=== PATIENT | female | born 1980 | race Caucasian/White ===

== ENCOUNTER 2021-08-20 12:55 | Emergency (ER) | payer BC ==
--- OUTSIDE RECORDS SUMMARY | 2021-08-20 13:01 | XMS REPORT | Continuity of Care Document ---
:1980 Author Organization [facility] t Address [address] [place] [address] Care Team Providers Name Role Phone Pcp, Does Not Have A Primary Care Physician Nehal Attending Clinician Unavailable JOANNA Attending Clinician Unavailable Agustin RN, D Attending Clinician Unavailable Pcp, Does Not Have A Attending Clinician EBHIM Attending Clinician Unavailable Doctor Unassigned, Name Attending Clinician Unavailable Robby Attending Clinician Unavailable Sugar Rahman Admitting Clinician Unavailable JOANNA Admitting Clinician Unavailable LESTER [place] Admitting Clinician Unavailable Sadi Mae Admitting Clinician Unavailable Robby Admitting Clinician Unavailable Payers Payer Name Policy Type Policy Number Effective Date Expiration Date S ource Problems Condition Condition Condition Status Onset Resolution Last Treating Co mments Source Name Details Category Date Date Treatment Clinician Date No known No known Disease Unive rs active active ity of problems problems [facility] Allergies, Adverse Reactions, Alerts Allergy Allergy Status Severity Reaction(s) Onset Inactive Treating Comm ents Source Name Type Date Date Clinician Cephalex Propensi Active Palpitations Univers in ty to 01-20 ity of adverse 00:00: [place] reaction 00 Medical s Branch CEPHALEX DRUG Active High Palpitations Un shari IN INGREDI 01-20 ity of 00:00: [place] [id number] Medical Branch Sulfa DA Active SV ANAPHYLAXIS 2020-0 [facility] (Sulfona 12-29 [facility] mide 00:00: Hospita Antibiot 00 l of ics) [place] hydrocod DA Active U 2020-0 [facility] one 12-29 [facility] 00:00: [facility]ospita 00 l of [place] latex DA Active MO 2020-0 [facility] 12-29 [facility] 00:00: [facility]ospita 00 l of [place] hydrocod DA Active U N/V 2020- [facility] one 12-29 [facility] 00:00: [facility]ospita 00 l of [place] latex DA Active MO RED, ITCHY 2019- [facility] SKIN, 12-29 Woman's BLISTERS 00:00: Hospita 00 l of [place] cephalex DA Active SV SEVERE CHEST 2019- HC A in PAIN 12-27 Woman's 00:00: Hospita 00 l of [place] cephalex DA Active SV 2019-0 [facility] in 12-27 Clear 00:00: [place] [facility] Sulfa DA Active U UNKNOWN [facility] (Sulfona 09-20 Clear mide 00:00: [place] Antibiot 00 [facility] hydrocod DA Active U UNKNONN [facility] one 09-20 Clear 00:00: [place] 00 [facility] Sulfa Propensi Active Anaphylaxis Uni vers (Sulfona ty to 2-02 ity of mide adverse 00:00: [place] Antibiot reaction 00 Medica l ics) Branch SULFA Drug Active Anaphylaxis Unive rs (SULFONA Class 2-02 ity of MIDE 00:00: [place] ANTIBIOT 00 Medical ICS) Branch HYDROCOD DA Active U RASH [facility] ONE 11-28 Clear 00:00: [place] [facility] LATEX DA Active U RASH [facility] - Clear 00:00: [place] [facility] No Known DA Active U [facility] Contrast 11-28 Clear Allergie 00:00: [place] s [facility] No Known DA Active U [facility] Food 11-28 Clear Allergie 00:00: [place] s [facility] SULFA DA Active U RASH [facility] DRUGS 11-28 Clear 00:00: [place] [facility] NO KNOWN Drug Active Univers ALLERGIE Class ity of S [facility] Social History Social Habit Start Date Stop Date Quantity Comments Source Exposure to Not sure University SARS-CoV-2 [facility] (event) Branch Tobacco use and 2021-01-20 2021-01-20 Never used Universit y of exposure 00:00:00 00:00:00 [facility] Alcohol intake 2021-01-20 2021-01-20 Lifetime University of 00:00:00 00:00:00 non-drinker [facility] (finding) Branch Sex Ass[birth year] At [birth year] Universit y of 00:00:00 00:00:00 [facility] Smoking Status Start Date Stop Date Source Unknown if ever smoked Universit y of [facility] Never smoker [facility] Medications Ordered Filled Start Stop Current Ordering Indication Dosage Frequency Signature Comments Components Source Medication Medication Date Date Medication? Clinician (SIG) Name Name mesalamine Yes 1.2g Take 1.2 g U nivers 1.2 gram EC 7-10 by mouth 2 it y of tablet 00:00: (two) [place] 00 times Medical daily. Branch mesalamine Yes 1.2g Take 1.2 g U nivers 1.2 gram EC 7-10 by mouth 2 it y of tablet 00:00: (two) [place] 00 times Medical daily. Branch mesalamine Yes 1.2g Take 1.2 g U nivers 1.2 gram EC 7-10 by mouth 2 it y of tablet 00:00: (two) [place] 00 times Medical daily. Branch mesalamine Yes 1.2g Take 1.2 g U nivers 1.2 gram EC 7-10 by mouth 2 it y of tablet 00:00: (two) [place] 00 times Medical daily. Branch mesalamine Yes 1.2g Take 1.2 g U nivers 1.2 gram EC 7-10 by mouth 2 it y of tablet 00:00: (two) [place] 00 times Medical daily. Branch mesalamine Yes 1.2g Take 1.2 g U nivers 1.2 gram EC 7-10 by mouth 2 it y of tablet 00:00: (two) [place] 00 times Medical daily. Branch Procedures Procedure Date / Time Performed Performing Clinician [facility] e ASSIGNMENT OF BENEFITS 2021-01-20 23:20:13 Doctor Unassigned, No [facility] Name Medical Branch Encounters Start End Encounter Admission Attending Care Care Encounter Source Date/Time Date/Time Type Type Clinicians Facility Department ID 2019-12-30 Inpatient TIFFANY Barillas OUTD [id number] [facility] 08:00:00 [facility] 2019-12-28 Inpatient TIFFANY aBrillas OUTD [id number] [facility] 11:30:00 [facility] 2021-08-18 2021-08-18 Outpatient [facility] [id number] [place] 00:00:00 00:00:00 MILAN [address] 2021-08-16 2021-08-16 Outpatient [facility] [id number] [place] 00:00:00 00:00:00 MILAN [address] [facility] 2021-01-22 2021-01-22 Telephone ONEIL [id number] Univers 00:00:00 00:00:00 Elsimary anne SCHULZY [id number] i ty of HOSPITAL 4.2.7.2.686 Aditya as [phone] [facility] [address] [place] 2021-01-21 2021-01-21 Outpatient [facility] [id number] Univers 18:20:00 18:20:[id number] [facility] 2021-01-21 2021-01-21 Telephone [id number] Univers 00:00:00 00:00:00 Patient TASNEEM [id number] it y of Does Not HOSPITAL 4[place]7.2.686 [place] [phone] [facility] [address] 2021-01-20 2021-01-20 Outpatient Anca TAYLOR [facility] [id number] Univers 18:00:00 18:00:[address] [facility] 2021-01-20 2021-01-20 Orders Doctor ONEIL [id number] Univers 00:00:00 00:00:00 Only Unassigned, TASNEEM [id number] ity of [place] [facility] 4.2.7.2.686 Aidtya as [phone] [address] 2021-01-20 2021-01-20 Letter Doctor ONEIL [id number] Univers 00:00:00 00:00:00 (Out) Unassigned, TASNEEM [id number] ity of [place] [facility] 4.2.7.2.686 Aditya as [phone] [facility] 044 Branch 2021-01-20 2021-01-20 Letter Doctor ONEIL [id number] Univers 00:00:00 00:00:00 (Out) Unassigned, TASNEEM [id number] ity of [place] [facility] 4.2.7.2.686 Aditya as [phone] [facility] [address] 2019-12-28 2019-12-28 Outpatient BARTOLO JacoboCL LABO [id number] [facility] 13:49:00 13:49:00 Ashanti [facility] 2019-12-12 2019-12-12 Outpatient BARTOLO JacoboWH OUTD [id number] [facility] 11:00:00 11:00:00 Ashanti [id number] [facility] 2019-11-13 2019-11-13 Outpatient BARTOLO BarillasPM DARRIAN [id number] [facility] 12:00:00 12:00:00 Ashanti [id number] [facility] 2019-10-29 2019-10-29 Outpatient Robby MMG MMG [id number] [place] 10:01:00 10:01:00 0604 [facility] Results Test Description Test Time Test Comments Results Result Comments Source SARS-CoV-2 (COVID-19) RNA [Presence] in Respiratory sp ecimen by 2021-08-16 23:37:47 MOSHE with probe detection Test Item Value Reference Range Interpretation Comme nts SARS-CoV-2 (COVID-19) RNA [Presence] in Respiratory specimen by Not detected MOSHE with probe detection (test code = 89028-2) Whether patient is employed in a healthcare setting (test code = Un known 36848-5) Whether the patient has symptoms related to condition of interest U nknown (test code = 99280-2) Whether the patient was hospitalized for condition of interest Unkn own (test code = 81914-9) Whether the patient was admitted to intensive care unit (ICU) for U nknown condition of interest (test code = 23537-4) Whether patient resides in a congregate care setting (test code = U nknown 32712-0) status (test code = 07277-7) Unknown Date and time of symptom onset (test code = 45819-5) Unknown UTERUS,OTHER THAN PROLAPSE/[id number] 18:42:00 RUN DATE: 01/05/20 [facility] PAGE 1 RUN TIME: 827 Specimen Inquiry RUN USER: INTERFACE PATIENT: ANEUDY BHAT LOC: JHONATHAN U #: [id number] AGE/SX: 39/F [facility] RE[facility]19REG DR: Ashanti Jacobo DO : 78 BED: A DIS: 12/31/19 STATUS: DIS Cristopher TLOC: SPEC #: [id number] RECD: 12/30/19 STATUS: MARYCARMEN JOSEPH #: [id number] MITCH: 12/30/19- SUBM DR: Ashanti Jacobo DO ENTERED: 12/30/19 SP TYPE: UTERUSOTH OTHR DR: Geremias Mae MD ORDERED: LEVEL V SURGICA CODES: [id number] - UTERUS, NOS COPIES TO: Geremias Mae MD [address] [place] [address] Ashanti Jacobo [address] [address] PROCEDURES: LEVEL V SURGICA (Incomplete) TISSUES: UTERUS, NOS -UTERUS/CERVIX/BILATERAL FALLOPIAN TUBES CLINICAL HISTORY 39 year old, adenomyosis, chronic pelvic pain, menometrorrhagia (wpd) FINAL DIAGNOSIS Uterus, cervix, bilateral fallopiantubes, hysterectomy and bilateral salpingectomy: - cervix - mild chronic inflammation, parakeratosis - endometrium - secretory phase - myometrium - no pathologic alterations- uterine serosa - fibrous adhesions - bilateral fallopian tubes - evidence of prior tubal ligation (plastic rings in place bilaterally) - left fallopian tube - focus of endometriosis CPT code(s): 21896 pk/wpd CONTINUED ON NEXT PAGE RUN DATE: 01/05/20 [facility] PAGE 2 RUN TIME: 827 Specimen Inquiry RUN USER: INTERFACE SPEC #: [id number] PATIENT: ANEUDY BHAT #[id number] (Continued) GROSS DESCRIPTION ANATOMIC SOURCE OF TISSUE (per Requisition): Uterus, cervix, bilateral fallopian tubes The specimen is received in formalin, labeled with the patient's name and designated "uterus, cervix, bilateral fallopian tubes". It consists of a 9 x 6 x 4.7 cm, 105 gm hysterectomy specimen and four separate segments of unoriented fallopian tubes containing two fimbriae. The serosa is jesus and contains pink fibrous adhesions in the mid to upper anterior wall. The cervical external os measures 0.8 cm. The portio vaginalis measures 2.7 cm. Carpenter [employer] sections are submitted labeled A1. The endometrium measures 0.1 cm. The myometrium measures up to 2.8 cm thick and contains no discrete lesion. Carpenter [employer] sections are submitted labeled A2 and A3. The first segment of fallopian tube with fimbriae and healed previous tubal ligation measures 5.5 x 0.6 x 0.4 cm and contains pedunculated semi-translucent paratubal cysts. The ligation site contains a 0.3 cm white plastic ring. The entire fimbria and one cross-section of tube with the paratubal cysts are submitted and labeled A4. The remaining three segments of fallopian tube aggregate to 6 x 0.7 x 0.7 cm and contains semi-translucent paratubal cysts measuring up to 0.3 cm. The ligation site contains a 0.3 cm white plastic ring. The entire fimbria and one cross-section from each segment are submitted in A5. hz/kr 12/30/19 MICROSCOPIC DESCRIPTION The cervix has a mild infiltrate of small lymphocytes and plasma cells. Parakeratosis is pr esent. The endometrium is composed of evenly spaced small tubular glands with no significant nuclear stratification or mitotic activity. The myometrium has no pathologic alterations. The uterineserosa has fibrous adhesions. The bilateral fallopian tubes have evidence of prior tubal ligation with plastic rings in place. Paratubal cysts are identified bilaterally. A focus of endometriosis is identified involving the left fallopian tube. pkg/wpd Signed MichelleJenna 12/31/19 1842 END OF REPORT HGB [id number] 05:10:00 Test Item Value Reference Range Interpretation Comments HEMOGLOBIN (test code = HGB) 11.3 g/dL 10.7-13.9 N HEMATOCRIT (test code = HCT) 36.3 % 32.1-42.1 N Novel Coronavirus 11:51:00 Test Item Value Reference Range Interpretation Comments Novel Coronavirus Negative Negative Positive r esults are 2019 Inhouse (test indicativ e of the presence code = [id number]) ofSARS-CoV -2 RNA, clinical correlation wit h patient historyand othe r diagnostic info rmation is necessary to determinepatien t infection status. Positiv e results do not rule out bacterial infection or co -infection with other viru ses. Negative result s do not preclude SARS-C oV-2 infection andsh ould not be used as the [place] e basis for patient managementdecis ions. Negative result s must be combined with otherclinical observations, p atient history, and epidemiological information . Detection of SARS-CoV-2 RNA may be affe cted bysample collec tion methods, storag e conditions, and /or stageof infection. Aleyda l RNA mutations, vacc inations, antiviraltherap eutics, antibiotics, chemotherapeuti c orimmunosuppres bernardino drugs have not been e valuated for effectson d etection. Results are for the identification of SARS-CoV-2 RNA usingthe Skinkers M2000 Sy stem under the FDA Emergen cy UseAuthorizatio n. The testing is perf ormed by personneltraine d in the procedures for the Renee M2000 molecular diagnostic SARS-CoV-2 assa y in vitro. Novel Coronavirus 11:50:00 Test Item Value Reference Range Interpretation Comments Novel Coronavirus Negative Negative Positive r esults are 2019 Inhouse (test indicativ e of the presence code = [id number]) ofSARS-CoV -2 RNA, clinical correlation wit h patient historyand othe r diagnostic info rmation is necessary to determinepatien t infection status. Positiv e results do not rule out bacterial infection or co -infection with other viru ses. Negative result s do not preclude SARS-C oV-2 infection andsh ould not be used as the [place]ip[place] e basis for patient managementdecis ions. Negative result s must be combined with otherclinical observations, p atient history, and epidemiological information . Detection of SARS-CoV-2 RNA may be affe cted bysample collec tion methods, storag e conditions, and /or stageof infection. Aleyda l RNA mutations, vacc inations, antiviraltherap eutics, antibiotics, chemotherapeuti c orimmunosuppres bernardino drugs have not been e valuated for effectson d etection. Results are for the identification of SARS-CoV-2 RNA usingthe Renee M2000 Sy stem under the FDA Emergen cy UseAuthorizatio n. The testing is perf ormed by personneltraine d in the procedures for the Renee M2000 molecular diagnostic SARS-CoV-2 assa y in vitro. AG HEPATITIS B [id number] 17:04:00 Test Item Value Reference Range Interpretation Comments AG HEPATITIS B SURFACE (test code NONREACTIVE NONREACTIVE = HBSAG) IS CONSENT FORM SIGNED FOR HIV TESTING? YAB HEPATITIS C [id number] 17:04:00 Test Item Value Reference Range Interpretation Comments AB HEPATITIS C (test code = NONREACTIVE NONREACTIVE HCVAB) SIGNAL TO CUTOFF (test code = 0.24 <0.80 N CUTOFF) IS CONSENT FORM SIGNED FOR HIV TESTING? YAB HIV 1 17:04:00 Test Item Value Reference Range Interpretation Comments AB HIV 1 2 (test NONREACTIVE NONREACTIVE Done by Rebeka Molina code = [id number]) 4th Gen HIV Ag/Ab Combo Screen IS CONSENT FORM SIGNED FOR HIV TESTING? YURINALYSIS [id number] 14:13:00 Test Item Value Reference Range Interpretation Comments UA COLOR (test code = COLU) YELLOW YELLOW UA APPEARANCE (test code = CLEAR CLEAR APPU) UA GLUCOSE DIPSTICK (test NEGATIVE NEG code = DGLUU) UA BILIRUBIN DIPSTICK (test NEGATIVE NEG code = BILU) UA KETONE DIPSTICK (test code NEGATIVE NEG = KETU) UA SPECIFIC GRAVITY (test 1.015 1.001-1.035 N code = SGU) UA BLOOD DIPSTICK (test code 1+ NEG A = AURELIANO) UA PH DIPSTICK (test code = 6.0 5-9 HA) UA PROTEIN DIPSTICK (test NEGATIVE NEG code = PROU) UA UROBILINIOGEN DIPSTICK NEGATIVE mg/dL NEG (test code = URO) UA NITRITE DIPSTICK (test NEG NEG code = MARIANO) UA LEUKOCYTE ESTERASE NEG NEG DIPSTICK (test code = LEUU) UA WBC (test code = WBCU) 0-2 #/hpf NONE SEEN UA RBC (test code = RBCU) 0-2 #/hpf NONE SEEN UA EPITHELIAL CELLS (test NONE SEEN #/HPF RARE-FEW code = EPIU) UA BACTERIA (test code = NEGATIVE /HPF RARE-FEW BACU) URINE SAMPLE: CLEAN CATCHUR HCG [id number] 14:13:00 Test Item Value Reference Range Interpretation Comments UR HCG QUAL (test NEGATIVE 1. Very di lute urine code = HCGQLU) specimens, as indicated by a lowspecific g ravity, may not contain rep resentative levels ofhCG. 2 . False negative result s may occur when the levels of hCGare below the sensi tivity level of the test. If is still suspec tiana, a first morningurine sp ecimen should be colle cted 48 hours later and tested. URINE SAMPLE: CLEAN CATCHPROTHROMBIN [id number] 14:01:00 Test Item Value Reference Range Interpretation Comments PROTHROMBIN TIME PATIENT (test code 12.0 secs 10.4-12.4 N = PTP) THROMBOPLASTIN TIME [id number] 14:01:00 Test Item Value Reference Range Interpretation Comments THROMBOPLASTIN TIME PARTIAL (test 35.9 secs 22-38 N code = PTT) CHEMISTRY 7 [id number] 13:54:00 Test Item Value Reference Range Interpretation Comments SODIUM (test code = NA) 141 mEq/L 135-145 N POTASSIUM (test code = K) 3.6 mEq/L 3.5-5.0 N CHLORIDE (test code = CL) 103 mEq/L 100-115 N CARBON DIOXIDE (test code = CO2) 29 mEq/L 22-31 N ANION GAP (test code = GAP) 12.20 10-20 N GLUCOSE (test code = GLU) 77 mg/dL 65-110 N BLOOD UREA NITROGEN (test code = 9 mg/dL 7-18 N BUN) GLOMERULAR FILTRATION RATE (test 93 ml/min >60 N code = GFR) CREATININE (test code = CREAT) 0.7 mg/dL 0.5-1.0 N CALCIUM (test code = CA) 8.6 mg/dL 8.4-10.2 N CBC W/AUTO [id number] 13:45:00 Test Item Value Reference Range Interpretation Comments WHITE BLOOD CELL (test code = WBC) 7.5 K/mm3 6.6-12.1 N RED BLOOD CELL (test code = RBC) 4.24 M/mm3 3.45-5.01 N HEMOGLOBIN (test code = HGB) 12.8 g/dL 10.7-13.9 N HEMATOCRIT (test code = HCT) 41.3 % 32.1-42.1 N MEAN CELL VOLUME (test code = MCV) 97 fL 84.1-94.8 H MEAN CELL HGB (test code = MCH) 30.2 pg 27-35 N MEAN CELL HGB CONCETRATION (test 31.0 gm/dL 32.2-34.1 L code = MCHC) RED CELL DISTRIBUTION WIDTH (test 12.2 % 12.4-16.5 L code = RDW) PLATELET COUNT (test code = PLT) 294 K/mm3 133-385 N MEAN PLATELET VOLUME (test code = 10.8 fl 9.1-12.7 N MPV) NEUTROPHIL % (test code = NT%) 64.8 % 56.5-79.4 N LYMPHOCYTE % (test code = LY%) 23.7 % 14.3-34.3 N MONOCYTE % (test code = MO%) 6.8 % 5.1-10.4 N EOSINOPHIL % (test code = EO%) 3.7 % 0.1-3.0 H BASOPHIL % (test code = BA%) 0.7 % 0.1-1.0 N NEUTROPHIL # (test code = NT#) 4.9 K/mm3 LYMPHOCYTE # (test code = LY#) 1.8 K/mm3 MONOCYTE # (test code = MO#) 0.5 K/mm3 EOSINOPHIL # (test code = EO#) 0.28 K/mm3 BASOPHIL # (test code = BA#) 0.1 K/mm3 RBC MORPHOLOGY REQUIRED (test code NORMAL NORMAL = RBCM) PLATELET MORPHOLOGY REQUIRED (test NORMAL NORMAL code = PLTMR) URINALYSIS [id number] 13:42:00 Test Item Value Reference Range Interpretation Comments UA COLOR (test code = COLU) YELLOW YELLOW UA APPEARANCE (test code = CLEAR CLEAR APPU) UA GLUCOSE DIPSTICK (test NEGATIVE NEG code = DGLUU) UA BILIRUBIN DIPSTICK (test NEGATIVE NEG code = BILU) UA KETONE DIPSTICK (test code NEGATIVE NEG = KETU) UA SPECIFIC GRAVITY (test 1.015 1.001-1.035 N code = SGU) UA BLOOD DIPSTICK (test code 1+ NEG A = AURELIANO) UA PH DIPSTICK (test code = 6.0 5-9 HA) UA PROTEIN DIPSTICK (test NEGATIVE NEG code = PROU) UA UROBILINIOGEN DIPSTICK NEGATIVE mg/dL NEG (test code = URO) UA NITRITE DIPSTICK (test NEG NEG code = MARIANO) UA LEUKOCYTE ESTERASE NEG NEG DIPSTICK (test code = LEUU) UA WBC (test code = WBCU) 0-2 #/hpf NONE SEEN UA RBC (test code = RBCU) 0-2 #/hpf NONE SEEN UA EPITHELIAL CELLS (test NONE SEEN #/HPF RARE-FEW code = EPIU) UA BACTERIA (test code = NEGATIVE /HPF RARE-FEW BACU) URINE SAMPLE: CLEAN CATCHUR HCG [id number] 13:42:00 Test Item Value Reference Range Interpretation Comments UR HCG QUAL (test code = HCGQLU) URINE SAMPLE: CLEAN CATCH
--- NOTE | 2021-08-20 13:57 | RAD REPORT ---
EXAM DESCRIPTION: RAD - Chest Single View - 08/20/2021 1:50 pm CLINICAL HISTORY: PALPITATIONS COMPARISON: No comparisons FINDINGS: Lines: None. Lungs: No evidence of edema or pneumonia. Small calcified pulmonary nodules. Pleural: No significant pleural effusions or pneumothorax. Cardiac: The heart size is within normal limits. Bones: No acute fractures. Other: IMPRESSION: No acute cardiopulmonary disease.
[2021-08-20 14:02] LABS: Absolute Lymphocytes (CBC) 1.7 K/uL (0.7-4.9); Hematocrit 33.2 % (36.0-45.0); Lymphocytes % 21.2 % (15.3-44.8); MPV 8.1 fL (7.6-11.3); RBC Red Blood Cell Count 3.69 M/uL (3.86-4.86)
[2021-08-20 14:26] LABS: ALT/SGPT 30 U/L (12-78); AST/SGOT 18 U/L (15-37); Albumin 3.4 g/dL (3.4-5.0); Alkaline Phosphatase 60 U/L (45-117); BUN Blood Urea Nitrogen 9 mg/dL (7-18); Bicarbonate 29 mmol/L (21-32); Bilirubin Direct 0.1 mg/dL (0-0.2); Bilirubin Total 0.3 mg/dL (0.2-1.0); Glucose Level 94 mg/dL (74-106); Magnesium 2.1 mg/dL (1.8-2.4); NT PRO-BNP 179 pg/mL (<125); Potassium 3.3 mmol/L (3.5-5.1); Protein, Total 6.9 g/dL (6.4-8.2); Sodium Level 142 mmol/L (136-145); Troponin High Sensitivity 14.8 pg/mL (<58.9)
--- NOTE | 2021-08-20 15:35 | ER ---
Nurse's Notes [facility] Name: Larisa Jean-Baptiste Age: 41 yrs Sex: Female : 1980 Arrival Date: 08/20/2021 Time: 13:00 Bed 16 Private MD: Diagnosis: Palpitations Presentation: 08/20 13:04 Chief complaint: Patient states: "I had surgery Rajesh morning to fix a stitch from my ab2 hernia repair. Since then I've been SOB, I can feel that my pulse is irregular and I see spots when it happens." Pt c/o chest tightness and tenderness around the incision site. Chief complaint:. Coronavirus screen: Vaccine status: Patient reports being unvaccinated. Client denies travel out of the [place] in the last 14 days. At this time, the client does not indicate any symptoms associated with coronavirus-19. Ebola Screen: Patient negative for fever greater than or equal to 101.5 degrees Fahrenheit, and additional compatible Ebola Virus Disease symptoms Patient denies exposure to infectious person. Patient denies travel to an Ebola-affected area in the 21 days before illness onset. No symptoms or risks identified at this time. Initial Sepsis Screen: Does the patient meet any 2 criteria? No. Patient's initial sepsis screen is negative. Does the patient have a suspected source of infection? No. Patient's initial sepsis screen is negative. Risk Assessment: Do you want to hurt yourself or someone else? Patient reports no desire to harm self or others. Onset of symptoms is unknown. 13:04 Method Of Arrival: Ambulatory ab2 13:04 Acuity: RYLEE 3 ab2 Triage Assessment: 13:09 General: Appears in no apparent distress. uncomfortable, Behavior is calm, cooperative, ab2 appropriate for age. Pain: Denies pain. Cardiovascular: Reports palpitations, shortness of breath. Respiratory: Reports shortness of breath Airway is patent Respiratory effort is even, unlabored, Respiratory pattern is regular, symmetrical. Historical: - Allergies: 13:02 Sulfa (Sulfonamide Antibiotics); ab2 13:02 Keflex; ab2 - Immunization history:: Adult Immunizations up to date, Client reports receiving the 2nd dose of the Covid vaccine. - Social history:: Smoking status: Patient denies any tobacco usage or history of. Screenin:24 Abuse screen: Denies threats or abuse. Denies injuries from another. Nutritional bp screening: No deficits noted. Tuberculosis screening: No symptoms or risk factors identified. Fall Risk None identified. Assessment: 13:24 General: SEE TRIAGE NOTE. bp 14:38 Reassessment: No changes from previously documented assessment. Patient and/or family bp updated on plan of care and expected duration. Pain level reassessed. ALL CURRENT ORDERS COMPLETE. Cardiovascular: Rhythm is sinus rhythm with unifocal PVCs. 16:16 Reassessment: PT D/C HOME AMBULATORY WITH FAMILY, DX WITH PALPITATIONS. bp Vital Signs: 13:04 BP 107 / 64; Pulse 77; Resp 18; Temp 97.2(TE); Pulse Ox 100% on R/A; Weight 53.98 kg; ab2 Height 5 ft. 7 in. (170.18 cm); Pain 0/10; 14:30 BP 110 / 71; Pulse 69; Resp 12; Pulse Ox 100% ; bp 16:15 BP 108 / 69; Pulse 66; Resp 17; Pulse Ox 99% ; bp 13:04 Body Mass Index 18.64 (53.98 kg, 170.18 cm) ab2 ED Course: 13:00 Patient arrived in ED. mr 13:09 Triage completed. ab2 13:10 Arm band placed on left wrist. ab2 13:10 Inserted saline lock: 20 gauge in left antecubital area, using aseptic technique. Blood bp collected. 13:12 Tino Paredes NP is PHCP. pm1 13:12 Geremias Pereira MD is Attending Physician. pm1 13:23 Geremias Jo, AIDE is Primary Nurse. bp 13:24 Patient has correct armband on for positive identification. Bed in low position. Call bp light in reach. Side rails up X2. 13:51 XRAY Chest (1 view) In Process Unspecified. EDMS 16:16 No provider procedures requiring assistance completed. IV discontinued, intact, bp bleeding controlled, No redness/swelling at site. Pressure dressing applied. Administered Medications: 15:45 Drug: Potassium Effervescent Tablet 50 mEq Route: PO; bp 16:15 Follow up: Response: No adverse reaction bp Outcome: 15:35 Discharge ordered by . pm1 16:16 Discharged to home ambulatory, with family. bp 16:16 Condition: stable 16:16 Discharge instructions given to patient, Instructed on discharge instructions, follow up and referral plans. Demonstrated understanding of instructions, follow-up care. 16:17 Patient left the ED. bp Signatures: Dispatcher [employer] Wilma Madera ReggieTino NP ACCOUNTANT CONTROLLER pm1 Geremias Jo, RN RN bp Jacoby Santiago
--- NOTE | 2021-08-20 15:35 | EDPHYS ---
Physician Documentation [facility] Name: Larisa Jean-Baptiste Age: 41 yrs Sex: Female : 1980 Arrival Date: 08/20/2021 Time: 13:00 Bed 16 Private MD: ED Physician Geremias Pereira HPI: 08/20 13:29 This 41 yrs old Female presents to ER via Ambulatory with complaints of Palpitations. pm1 13:29 The patient presents with a history of heart skipping beats. Context: The symptoms pm1 occur without known cause. Onset: The symptoms/episode began/occurred Has had occasional palpitations in the past but worse the past 3 days. Duration: The patient or guardian reports multiple episodes, that have now resolved. Modifying factors: The symptoms are aggravated by lying down, The symptoms are alleviated by nothing. Associated signs and symptoms: Pertinent positives: Dizziness, Pertinent negatives: chest pain, SOB. Severity of symptoms: in the emergency department the symptoms have resolved Pain is currently a 0 / 10. The patient has experienced similar episodes in the past, a few times. The patient has been recently seen by a physician: with different complaint(s), hernia mesh revision. Historical: - Allergies: 13:02 Sulfa (Sulfonamide Antibiotics); ab2 13:02 Keflex; ab2 - Immunization history:: Adult Immunizations up to date, Client reports receiving the 2nd dose of the Covid vaccine. - Social history:: Smoking status: Patient denies any tobacco usage or history of. ROS: 13:29 Constitutional: Negative for fever, chills, and weight loss. pm1 13:29 Respiratory: Negative for shortness of breath, cough, wheezing, and pleuritic chest pain, Abdomen/GI: Negative for abdominal pain, nausea, vomiting, diarrhea, and constipation, MS/Extremity: Negative for injury and deformity, Skin: Negative for injury, rash, and discoloration. 13:29 Cardiovascular: Positive for palpitations, Negative for chest pain, edema, orthopnea. 13:29 Neuro: Positive for dizziness, Negative for headache, numbness, tingling. 13:29 All other systems are negative. Exam: 13:29 Constitutional: This is a well developed, well nourished patient who is awake, alert, pm1 and in no acute distress. Head/Face: Normocephalic, atraumatic. Cardiovascular: Regular rate and rhythm with a normal S1 and S2. No gallops, murmurs, or rubs. Normal PMI, no JVD. No pulse deficits. Respiratory: Lungs have equal breath sounds bilaterally, clear to auscultation and percussion. No rales, rhonchi or wheezes noted. No increased work of breathing, no retractions or nasal flaring. 13:29 Back: No spinal tenderness. No costovertebral tenderness. Full range of motion. Skin: Warm, dry with normal turgor. Normal color with no rashes, no lesions, and no evidence of cellulitis. MS/ Extremity: Pulses equal, no cyanosis. Neurovascular intact. Full, normal range of motion. 13:29 Abdomen/GI: Exam negative for acute changes, Inspection: abdomen appears normal, Palpation: abdomen is soft and non-tender. 13:29 Neuro: Exam negative for acute changes, Orientation: is normal, Mentation: is normal, Motor: is normal, moves all fours. Vital Signs: 13:04 BP 107 / 64; Pulse 77; Resp 18; Temp 97.2(TE); Pulse Ox 100% on R/A; Weight 53.98 kg; ab2 Height 5 ft. 7 in. (170.18 cm); Pain 0/10; 14:30 BP 110 / 71; Pulse 69; Resp 12; Pulse Ox 100% ; bp 16:15 BP 108 / 69; Pulse 66; Resp 17; Pulse Ox 99% ; bp 13:04 Body Mass Index 18.64 (53.98 kg, 170.18 cm) ab2 MDM: 13:12 Patient medically screened. pm1 15:34 Data reviewed: vital signs. Data interpreted: Pulse oximetry: on room air is 100 %. pm1 Interpretation: normal. Counseling: I had a detailed discussion with the patient and/or guardian regarding: the historical points, exam findings, and any diagnostic results supporting the discharge/admit diagnosis, lab results, radiology results, the need for outpatient follow up, a family practitioner, to return to the emergency department if symptoms worsen or persist or if there are any questions or concerns that arise at home. 15:34 Special discussion: I discussed with the patient the need to follow-up with the pm1 PCP/specialist for the noted incidental finding on X-ray/CT scanning. Need to follow up with PCP for lung nodules. 08/20 13:25 Order name: Basic Metabolic Panel; Complete Time: 15:18 pm1 08/20 13:25 Order name: CBC with Diff; Complete Time: 14:16 pm1 08/20 13:25 Order name: LFT's; Complete Time: 15:18 pm1 08/20 13:25 Order name: Magnesium; Complete Time: 15:18 pm1 08/20 13:25 Order name: NT PRO-BNP; Complete Time: 15:18 pm1 08/20 13:25 Order name: Troponin HS; Complete Time: 15:18 pm1 08/20 13:25 Order name: XRAY Chest (1 view); Complete Time: 14:16 pm1 08/20 13:25 Order name: EKG; Complete Time: 13:26 pm1 08/20 13:25 Order name: Cardiac monitoring; Complete Time: 14:20 pm1 08/20 13:25 Order name: EKG - Nurse/Tech; Complete Time: 14:20 pm1 08/20 13:25 Order name: IV Saline Lock; Complete Time: 14:20 pm1 08/20 13:25 Order name: Labs collected and sent; Complete Time: 14:20 pm1 08/20 13:25 Order name: TSH; Complete Time: 15:18 pm1 08/20 13:25 Order name: O2 Per Protocol; Complete Time: 13:42 pm1 08/20 13:25 Order name: O2 Sat Monitoring; Complete Time: 13:42 pm1 Administered Medications: 15:45 Drug: Potassium Effervescent Tablet 50 mEq Route: PO; bp 16:15 Follow up: Response: No adverse reaction bp Disposition Summary: 08/20/21 15:35 Discharge Ordered Location: Home pm1 Problem: new pm1 Symptoms: have improved pm1 Condition: Stable pm1 Diagnosis - Palpitations pm1 Followup: pm1 - With: Emergency Department - When: As needed - Reason: Worsening of condition Followup: pm1 - With: Private Physician - When: 2 - 3 days - Reason: Recheck today's complaints, Continuance of care, Re-evaluation by your physician Discharge Instructions: - Discharge Summary Sheet pm1 - Palpitations pm1 Forms: - Medication Reconciliation Form pm1 - Thank You Letter pm1 - Antibiotic Education pm1 - Prescription Opioid Use pm1 Addendum: 08/23/2021 07:14 Co-signature as Attending Physician, Geremias Pereira MD I agree with the assessment and c ortez plan of care. Signatures: Dispatcher [employer] Geremias Jeffries MD MD cha Marinas, Patrick, YEAST TENDER YEAST TENDER pm1 Geremias Jo, RN RN bp Jacoby Santiago
[2021-08-20] MEDS ORDERED: POTASSIUM 25 MEQ EFFERV TAB ONE (15:50)
[2021-08-20 16:22] VITALS: TEMP 97.2
[2021-08-20 16:24] VITALS: BP 108/69; O2SAT 99
--- NOTE | 2021-08-21 09:27 | EKG ---
Test Date: 2021-08-20 Test Time: 14:02:13 General Manager: CHRISTO MEASUREMENT RESULTS: Intervals: Rate: 65 NJ: 148 QRSD: 72 QT: 394 QTc: 409 [place]: P: 82 NJ: 148 QRS: 84 T: 85 INTERPRETIVE STATEMENTS: Normal sinus rhythm Normal ECG No previous ECG available for comparison Electronically Signed On 08-21-21 09:25:49 CDT by Bright Vasquez
== END 2021-08-20 16:17 | disposition home or self-care (01) ==
LOC: ER 12:55
DX: R00.2 Palpitations (principal); Z88.2 Allergy status to sulfonamides; Z88.1 Allergy status to other antibiotic agents
CPT/HCPCS: 36415; 71045; 80048; 80076; 83735; 83880; 84443; 84484; 85025; 93005; 99284

== ENCOUNTER 2021-11-28 16:42 | Emergency (ER) | payer BC ==
[2021-11-28 17:42] LABS: Absolute Lymphocytes (CBC) 0.3 K/uL (0.7-4.9); Lymphocytes % 5.9 % (15.3-44.8); MCV 90.5 fL (80-100); RBC Red Blood Cell Count 4.09 M/uL (3.86-4.86)
--- NOTE | 2021-11-28 17:42 | RAD REPORT ---
EXAM DESCRIPTION: RAD - Chest Single View - 11/28/2021 5:33 pm CLINICAL HISTORY: PALPITATIONS Chest pain. COMPARISON: Chest Single View dated 08/20/2021 FINDINGS: Portable technique limits examination quality. The lungs are grossly clear. The heart is normal in size. No displaced fractures. IMPRESSION: No acute intrathoracic process suspected.
[2021-11-28 18:03] LABS: Potassium 3.5 mmol/L (3.5-5.1); Troponin High Sensitivity 10.9 pg/mL (<58.9)
--- NOTE | 2021-11-28 19:12 | ER ---
Nurse's Notes [facility] Name: Larisa Jean-Baptiste Age: 41 yrs Sex: Female : 1980 Arrival Date: 11/28/2021 Time: 16:43 Bed 12 Private MD: Diagnosis: Coronavirus infection, unspecified Presentation: 11/28 17:10 Chief complaint: Patient states: Last night started having body aches, fever, and jb4 chills, Congestion. Started having palpitations worse than normal, substernal chest pain for a few seconds. Coronavirus screen: Client presents with at least one sign or symptom that may indicate coronavirus-19. Standard/surgical mask placed on the client. Ebola Screen: No symptoms or risks identified at this time. Initial Sepsis Screen: Does the patient meet any 2 criteria? No. Patient's initial sepsis screen is negative. Does the patient have a suspected source of infection? No. Patient's initial sepsis screen is negative. Risk Assessment: Do you want to hurt yourself or someone else? Patient reports no desire to harm self or others. Onset of symptoms was November 28, 2021. Transition of care: patient was not received from another setting of care. 17:10 Acuity: RYLEE 3 jb4 17:10 Method Of Arrival: Ambulatory jb4 FOREIGN EXCHANGE POSITION CLERK: 17:13 LMP N/A - Hysterectomy jb4 Historical: - Allergies: 17:13 Keflex; jb4 17:13 Sulfa (Sulfonamide Antibiotics); jb4 - PMHx: 17:13 Irregular heart beat; Ulcerative colitis; jb4 - PSHx: 17:13 Tonsillectomy; hysterectomy; tubal; exploratory surgery of the abdomen; hernia repair; jb4 breast augmentation; - Immunization history:: Adult Immunizations up to date. - Social history:: Smoking status: Patient denies any tobacco usage or history of. Screenin:24 Abuse screen: Denies threats or abuse. Denies injuries from another. Nutritional iw screening: No deficits noted. Tuberculosis screening: No symptoms or risk factors identified. Fall Risk None identified. Assessment: 17:15 General: Appears in no apparent distress. comfortable, Behavior is calm, cooperative, jb4 appropriate for age. Pain: Complains of pain in xiphoid area Pain does not radiate. Pain currently is 0 out of 10 on a pain scale. at worst was 6 out of 10 on a pain scale. Quality of pain is described as piercing, Pain began suddenly. Neuro: Level of Consciousness is awake, alert, obeys commands, Oriented to person, place, time, situation. Cardiovascular: Patient's skin is warm and dry. Respiratory: Airway is patent Respiratory effort is even, unlabored, Respiratory pattern is regular, symmetrical. Derm: Skin is intact, Skin is pink, warm \T\ dry. Musculoskeletal: Circulation, motion, and sensation intact. Range of motion: intact in all extremities. 18:47 Reassessment: Patient appears in no apparent distress at this time. Patient and/or jb4 family updated on plan of care and expected duration. Pain level reassessed. Patient is alert, oriented x 3, equal unlabored respirations, skin warm/dry/pink. Patient states feeling better. Vital Signs: 17:10 BP 119 / 77; Pulse 101; Resp 18; Pulse Ox 100% on R/A; Weight 54.88 kg (R); Height 5 jb4 ft. 6 in. (167.64 cm) (R); 18:47 BP 115 / 65; Pulse 104; Resp 18; Pulse Ox 100% on R/A; jb4 17:10 Body Mass Index 19.53 (54.88 kg, 167.64 cm) 4 ED Course: 16:43 Patient arrived in ED. rg4 16:47 Edgar Magdaleno DO is Attending Physician. ms3 16:56 Sharmila Banks F[facility]-C [facility] kb 17:13 Triage completed. jb4 17:13 Arm band placed on right wrist. jb4 17:17 Rj Vee, RN is Primary Nurse. jb4 17:23 Initial lab(s) drawn, by mi, sent to lab. Inserted saline lock: 20 gauge in right jb4 antecubital area, using aseptic technique. Blood collected. 17:34 Flu Sent. jb4 17:34 Troponin HS Sent. jb4 17:34 Basic Metabolic Panel Sent. jb4 17:34 CBC with Diff Sent. jb4 17:35 Chest Single View XRAY In Process Unspecified. EDMS 19:24 No provider procedures requiring assistance completed. IV discontinued, intact, iw bleeding controlled, No redness/swelling at site. Pressure dressing applied. Patient maintains SpO2 saturation greater than 95% on room air. Administered Medications: No medications were administered Outcome: 19:11 Discharge ordered by . aldair 19:24 Discharged to home ambulatory, with family. iw 19:24 Condition: good 19:24 Discharge instructions given to patient, Instructed on discharge instructions, follow up and referral plans. Demonstrated understanding of instructions, follow-up care. 19:24 Patient left the ED. iw Signatures: Dispatcher [employer] EDMS Sharmila Banks, DESI-C DESI-Idalia Rader RN RN iw Roslyn Velez rg4 Rj Vee RN RN jb4 Edgar Magdaleno DO DO ms3
--- NOTE | 2021-11-28 19:12 | EDPHYS ---
Physician Documentation [facility] Name: Larisa Jean-Baptiste Age: 41 yrs Sex: Female : 1980 Arrival Date: 11/28/2021 Time: 16:43 Bed 12 Private MD: ED Physician Edgar Magdaleno OPERATIONAL COMMUNICATION CHIEF: 11/28 17:13 LMP N/A - Hysterectomy jb4 Historical: - Allergies: 17:13 Keflex; jb4 17:13 Sulfa (Sulfonamide Antibiotics); jb4 - PMHx: 17:13 Irregular heart beat; Ulcerative colitis; jb4 - PSHx: 17:13 Tonsillectomy; hysterectomy; tubal; exploratory surgery of the abdomen; hernia repair; jb4 breast augmentation; - Immunization history:: Adult Immunizations up to date. - Social history:: Smoking status: Patient denies any tobacco usage or history of. Vital Signs: 17:10 BP 119 / 77; Pulse 101; Resp 18; Pulse Ox 100% on R/A; Weight 54.88 kg (R); Height 5 jb4 ft. 6 in. (167.64 cm) (R); 18:47 BP 115 / 65; Pulse 104; Resp 18; Pulse Ox 100% on R/A; jb4 17:10 Body Mass Index 19.53 (54.88 kg, 167.64 cm) jb4 MDM: 17:11 Patient medically screened. kb 19:06 Data reviewed: vital signs, nurses notes. Data interpreted: Pulse oximetry: on room air kb is 100 %. Interpretation: normal. Counseling: I had a detailed discussion with the patient and/or guardian regarding: the historical points, exam findings, and any diagnostic results supporting the discharge/admit diagnosis, lab results, radiology results, the need for outpatient follow up, a family practitioner, to return to the emergency department if symptoms worsen or persist or if there are any questions or concerns that arise at home. 11/28 17:16 Order name: CBC with Diff; Complete Time: 17:47 kb 11/28 17:16 Order name: Basic Metabolic Panel; Complete Time: 18:05 kb 11/28 17:16 Order name: Troponin HS; Complete Time: 18:05 kb 11/28 17:16 Order name: Flu; Complete Time: 18:32 kb 11/28 17:16 Order name: Chest Single View XRAY; Complete Time: 17:47 kb 11/28 17:16 Order name: COVID-19 SARS RT PCR (Document "Date of Onset" if Symptomatic); Complete kb Time: 19:06 11/28 17:16 Order name: IV Start; Complete Time: 17:23 kb 11/28 17:16 Order name: EKG; Complete Time: 17:16 kb 11/28 17:16 Order name: EKG - Nurse/Tech; Complete Time: 17:34 kb Administered Medications: No medications were administered Disposition Summary: 11/28/21 19:11 Discharge Ordered Location: Home kb Condition: Stable kb Diagnosis - Coronavirus infection, unspecified kb Followup: kb - With: Emergency Department - When: As needed - Reason: Worsening of condition Followup: kb - With: Private Physician - When: 2 - 3 days - Reason: Recheck today's complaints, Continuance of care, Re-evaluation by your physician Discharge Instructions: - Discharge Summary Sheet kb - Viral Respiratory Infection, [id number] kb - COVID-19 kb Forms: - Medication Reconciliation Form kb - Thank You Letter kb - Antibiotic Education kb - Prescription Opioid Use kb Signatures: Dispatcher [employer] Sharmila Alexis, REFORESTATION WORKER-C REFORESTATION WORKER-Rj Archer, RN RN jb4
[2021-11-28 20:30] VITALS: O2SAT 100
[2021-11-28 20:32] VITALS: BP 115/65
--- NOTE | 2021-11-29 11:07 | EKG ---
Test Date: 2021-11-28 Test Time: 17:29:03 Tower Air Traffic Control Specialist: CAIT MEASUREMENT RESULTS: Intervals: Rate: 100 MA: 154 QRSD: 78 QT: 352 QTc: 454 [place]: P: 84 MA: 154 QRS: 88 T: 62 INTERPRETIVE STATEMENTS: Normal sinus rhythm Nonspecific ST abnormality Abnormal ECG Compared to ECG 08/20/2021 14:02:13 ST (T wave) deviation now present Electronically Signed On 11-29-21 11:06:21 CDT by Alexander Rodas
== END 2021-11-28 19:24 | disposition home or self-care (01) ==
LOC: ER 16:42
DX: U07.1 COVID-19 (principal); Z88.1 Allergy status to other antibiotic agents; Z88.2 Allergy status to sulfonamides
CPT/HCPCS: 93005; 85025; 80048; 36415; 84484; 87804 ×2; 71045; U0003

== ENCOUNTER 2022-01-01 11:00 | Day surgery (SDC) | payer BC ==
[2021-12-29 11:16] LABS: Absolute Lymphocytes (CBC) 1.5 K/uL (0.7-4.9); Hematocrit 36.2 % (36.0-45.0); Lymphocytes % 25.2 % (15.3-44.8); MCV 89.8 fL (80-100); MPV 8.3 fL (7.6-11.3); RBC Red Blood Cell Count 4.03 M/uL (3.86-4.86)
[2021-12-29 11:21] LABS: Protime INR 1.02
[2021-12-29 11:29] LABS: Potassium 3.8 mmol/L (3.5-5.1)
[2021-12-29 11:32] LABS: SARS-CoV-2 Antigen Rapid Res Negative (Negative)
[2022-01-01] MEDS ORDERED: NA CHLORIDE 0.9% 500 ML ONE (11:10)
[2022-01-01] MEDS ORDERED: FENTANYL CITR 100 MCG/2 ML ONE (11:17)
[2022-01-01] MEDS ORDERED: VERAPAMIL HCL 10 MG/4 ML VIAL IV ONE (11:17)
[2022-01-01] MEDS ORDERED: MIDAZOLAM HCL 2 MG/2 ML INJ ONE (11:17)
[2022-01-01] MEDS ORDERED: HEPARIN 10,000 UNIT/10 ML VIAL IV ONE (11:17)
[2022-01-01] MEDS ORDERED: HEPARIN 5000 UNIT/ML 1 ML VIAL ONE (11:17)
[2022-01-01] MEDS ORDERED: TICAGRELOR 90 MG TABLET PO ONE (11:18)
[2022-01-01] MEDS ORDERED: ASPIRIN 325 MG TAB ONE (11:18)
[2022-01-01] MEDS ORDERED: ATROPINE SULF 1 MG/10 ML SYR IV ONE (11:18)
[2022-01-01] MEDS ORDERED: CLOPIDOGREL 75 MG TABLET ONE (11:18)
[2022-01-01] MEDS ORDERED: LIDOCAINE 1% MPF 5 ML VIAL ONE (11:47)
[2022-01-01] MEDS ORDERED: HEPA 1000U/500MLS 2,000 UNIT/1,000 ML BAG IV ONE (11:51)
[2022-01-01 13:51] VITALS: BP 101/53; O2SAT 103
--- NOTE | 2022-01-01 22:57 | OP ---
Date of Procedure: 01/01/2022 Surgeon: RUSSELL TESFAYE Procedures Performed: 1.Selective coronary angiogram. 2.Left heart catheterization. Indication: Chest pain with abnormal stress test. Access: Right radial artery 6-Hungarian, closed with TR band. Complications: None. Bleeding: Less than 10 mL. Total Sedation Time: Zero. We did not give any sedation due to low blood pressure. Description Of Procedure: After risks, benefits, and alternatives were explained, the patient agreed to procedure and signed informed consent. The patient was brought into the cardiac catheterization laboratory, prepped and draped in usual sterile fashion. Then, we accessed right radial artery using the pediatric micropuncture kit and placed a 6-Hungarian slender sheath. We took 5-Hungarian Schurz 4.0 ca theter into the aortic root, engaged the left main and then right coronary artery, took standard view s, and then catheter was advanced over the wire into the LV. LVEDP was measured. Pullback did not r ecord any gradient, and then we removed the catheter and the sheath, placed TR band with good hemosta sis. Findings: 1.Left main: Large and normal. 2.LAD: Large and normal. Normal diagonal branches. 3.Left circumflex: Moderate sized and normal and nondominant. 4.RCA: Large dominant and normal. 5.Normal LVEDP at 10 mmHg. Conclusion: 1.Normal coronary arteries. 2.Normal LVEDP. Plan: Discharge home once criteria is met and follow up with me in the office in 1 week. /KYA Voice ID: [id number] Report ID: [id number]
== END 2022-01-01 14:05 | disposition home or self-care (01) ==
LOC: CCL 11:00
PROVIDERS: ATTEND Internal Medicine
DX: R94.39 Abnormal result of other cardiovascular function study (principal); R07.9 Chest pain, unspecified; R00.2 Palpitations; I49.3 Ventricular premature depolarization; Z87.891 Personal history of nicotine dependence; Z88.1 Allergy status to other antibiotic agents; Z88.2 Allergy status to sulfonamides; Z20.822 Contact with and (suspected) exposure to COVID-19; Z82.49 Family history of ischemic heart disease and other diseases of the circulatory system
CPT/HCPCS: 85025; 80048; 36415; 85610; 85730; 93458; 87811; C1893; Q9966; J1644 ×2; J2250; J3010; J7040

== ENCOUNTER 2024-03-09 09:06 | Emergency (ER) | payer BC ==
[2024-03-09] MEDS ORDERED: NA CHLORIDE 0.9% 1,000 ML ONE (09:35)
[2024-03-09 09:40] LABS: Absolute Lymphocytes (CBC) 0.7 K/uL (0.7-4.9); Absolute Monocytes 0.7 K/uL (0.1-1.3); Absolute Neutrophil 4.2 K/uL (1.8-8.0); Basophils % 0.5 % (0-1.3); Eosinophils % 0.1 % (0-4.4); Hematocrit 40.7 % (36.0-45.0); Hemoglobin 13.7 g/dL (12.0-15.0); Lymphocytes % 13.1 % (15.3-44.8); MCHC 33.5 g/dL (32.0-36.0); MCV 89.5 fL (80-100); Monocytes % 12.1 % (3.3-12.3); Neutrophils % 74.2 % (41.7-73.7); Nucleated Red Blood Cells % 0.1 % (0-0); Platelets 255 thou/uL (152-406); RBC Red Blood Cell Count 4.55 M/uL (3.86-4.86); Red Cell Distribution Width 12.8 % (12.1-15.2)
[2024-03-09 09:54] LABS: Anion Gap 9.4 mEq/L (5.0-15.0); Potassium 3.4 mEq/L (3.5-5.1)
[2024-03-09 09:58] LABS: SARS-CoV-2 Antigen CONTROL BLUE LINE VIS/BG OK; SARS-CoV-2 Antigen Rapid Res Negative (Negative)
[2024-03-09] MEDS ORDERED: POTASSIUM CL SA 10 MEQ TAB PO ONE (10:12)
--- NOTE | 2024-03-09 10:18 | RAD REPORT ---
EXAMINATION: ONE VIEW CHEST XR CLINICAL INDICATION: COUGH TECHNIQUE: Frontal chest projection is submitted. Examination is limited by patient positioning and t echnique. COMPARISON: 10/10/2023 FINDINGS: The lungs are diffusely emphysematous but grossly clear. The heart is normal in size. No displaced fr actures identified. IMPRESSION: COPD without an acute process suspected. The USPSTF recommends annual screening for lung cancer with low-dose computed tomography (LDCT) in ad ults aged 50 to 80 years who have a 20 pack-year smoking history and currently smoke or have quit within the past 15 years. Screening should be discontinued once a person has not smoked for 15 years or develops a health problem that substantially limits life expectancy or the ability or willingness to have curative lung surgery.
--- NOTE | 2024-03-09 11:20 | ER ---
Nurse's Notes [facility] Name: Larisa Jean-Baptiste Age: 43 yrs Sex: Female : 1980 Arrival Date: 03/09/2024 Time: 09:06 Bed 6 Private MD: Diagnosis: Influenza due to identified novel influenza A virus with other respiratory manifestations Presentation: 03/09 09:16 Chief complaint: Fever, decreased appetite, cough, congestion, nausea, and right ear hb pain x 4 days. Coronavirus screen: At this time, the client does not indicate any symptoms associated with coronavirus-19. Ebola Screen: No symptoms or risks identified at this time. Initial Sepsis Screen: Does the patient meet any 2 criteria? No. Patient's initial sepsis screen is negative. Does the patient have a suspected source of infection? No. Patient's initial sepsis screen is negative. Risk Assessment: Do you want to hurt yourself or someone else? Patient reports no desire to harm self or others. Onset of symptoms was March 06, 2024. 09:16 Method Of Arrival: Ambulatory hb 09:16 Acuity: RYLEE 3 hb Historical: - Allergies: 09:17 Keflex; hb 09:17 Sulfa (Sulfonamide Antibiotics); hb - PMHx: 09:17 irregular heart beat; ulcerative colitis; hb - PSHx: 09:17 breast augmentation; exploratory surgery of the abdomen; hernia repair; hysterectomy; hb Tonsillectomy; tubal; - Family history:: not pertinent. - Hospitalizations: : No recent hospitalization is reported. Screenin:30 [facility] ED Fall Risk Assessment (Adult) History of falling in the last 3 months, aa5 including since admission No falls in past 3 months (0 pts) Confusion or Disorientation No (0 pts) Intoxicated or Sedated No (0 pts) Impaired Gait No (0 pts) Mobility Assist Device Used No (0 pt) Altered Elimination No (0 pt) Score/Fall Risk Level 0 - 2 = Low Risk Oriented to surroundings, Maintained a safe environment, Educated pt \T\ family on fall prevention, incl call for assistance when getting out of bed. Abuse screen: Denies threats or abuse. Nutritional screening: No deficits noted. Tuberculosis screening: No symptoms or risk factors identified. Assessment: 09:25 General: Appears comfortable, Behavior is calm, cooperative. Pain: Complains of pain in aa5 right ear. Neuro: Level of Consciousness is awake, alert, obeys commands, Oriented to person, place, time, situation. Cardiovascular: Patient's skin is warm and dry. Respiratory: Reports cough Airway is patent Respiratory effort is even, unlabored, Respiratory pattern is regular, symmetrical. GI: Abdomen is flat, non-distended, Bowel sounds present X 4 quads. Abd is soft and non tender X 4 quads. Reports nausea, decreased appetite. : No signs and/or symptoms were reported regarding the genitourinary system. EENT: Reports pain in right ear. Derm: Skin is pink, warm \T\ dry. Musculoskeletal: Range of motion: intact in all extremities. 10:38 Reassessment: Patient is alert, oriented x 3, equal unlabored respirations, skin aa5 warm/dry/pink. 11:45 Reassessment: Patient is alert, oriented x 3, equal unlabored respirations, skin aa5 warm/dry/pink. Vital Signs: 09:16 BP 119 / 77; Pulse 66; Resp 16; Temp 98.6(O); Pulse Ox 100% on R/A; Pain 8/10; hb 10:38 BP 112 / 57; Pulse 69; Resp 16 S; Pulse Ox 100% on R/A; aa5 09:16 Pain Scale: Adult hb ED Course: 09:07 Patient arrived in ED. mr 09:08 Sohail Navarro MD is Attending Physician. rn 09:17 Triage completed. hb 09:17 Arm band placed on. hb 09:18 Jennifer Haywood, RN is Primary Nurse. aa5 09:25 Patient has correct armband on for positive identification. Bed in low position. Call aa5 light in reach. Side rails up X 1. Adult w/ patient. Pulse ox on. NIBP on. 09:30 Initial lab(s) drawn, by me, sent to lab. Inserted saline lock: 22 gauge in right aa5 antecubital area, using aseptic technique. Blood collected. Flushed with 10 mL NS. 09:32 COVID swab sent to lab. Flu and/or RSV swab sent to lab. Strep swab sent to lab. aa5 10:14 XRAY Chest (1 view) In Process Unspecified. EDMS 11:45 IV discontinued, intact, bleeding controlled, No redness/swelling at site. Pressure aa5 dressing applied. 11:45 No provider procedures requiring assistance completed. aa5 Administered Medications: 09:37 Drug: NS 0.9% IV 1000 ml IV at 1000 ml once; to be given as a bolus over 60 minutes aa5 Route: IV; Rate: 1000 ml; Site: right antecubital; 10:38 Follow up: IV Status: Completed infusion; IV Intake: 1000ml aa5 10:14 Drug: Potassium Chloride PO 40 mEq PO once Route: PO; bp 10:38 Follow up: Response: No adverse reaction aa5 Medication: 09:38 VIS not applicable for this client. aa5 Intake: 10:38 IV: 1000ml; Total: 1000ml. aa5 Outcome: 11:20 Discharge ordered by . rn 11:45 Discharged to home ambulatory, with significant other, aa5 11:45 Condition: stable 11:45 Discharge instructions given to patient, Instructed on discharge instructions, follow up and referral plans. Demonstrated understanding of instructions, follow-up care, 11:54 Patient left the ED. aa5 Signatures: Dispatcher [employer] EDSD Wilma Narvaez, Reg Reg mr Sohail Navarro MD MD rn Calderon, Audri, RN RN aa5 Soni Carreno RN RN hb Geremias Jo RN RN bp Corrections: (The following items were deleted from the chart) 09:20 09:16 Acuity: RYLEE 4 hb hb
--- NOTE | 2024-03-09 11:20 | EDPHYS ---
Physician Documentation [facility] Name: Larisa Jean-Baptiste Age: 43 yrs Sex: Female : 1980 Arrival Date: 03/09/2024 Time: 09:06 Bed 6 Private MD: ED Physician Sohail Navarro HPI: 03/09 09:20 This 43 yrs old Female presents to ER via Ambulatory with complaints of Palpitations, rn Cough. 09:20 The patient presents with a history of heart racing. Onset: The symptoms/episode rn began/occurred 4 day(s) ago. Duration: The patient or guardian reports multiple episodes. Modifying factors: The symptoms are aggravated by nothing. The symptoms are alleviated by nothing. Severity of symptoms: At their worst the symptoms were mild in the emergency department the symptoms are unchanged. The patient has experienced similar episodes in the past. Patient reports fever and cough for 4 days. Reports ear fullness, headache, congestion, cough, generalized malaise and anorexia. No focal pain. No abdominal pain. No shortness of breath. No chronic lung issues. Does have a history of intermittent palpitations with hypokalemia.. Historical: - Allergies: 09:17 Keflex; hb 09:17 Sulfa (Sulfonamide Antibiotics); hb - PMHx: 09:17 irregular heart beat; ulcerative colitis; hb - PSHx: 09:17 breast augmentation; exploratory surgery of the abdomen; hernia repair; hysterectomy; hb Tonsillectomy; tubal; - Family history:: not pertinent. - Hospitalizations: : No recent hospitalization is reported. ROS: 09:20 Constitutional: Positive for fever Eyes: Negative for injury, pain, redness, and event marketing intern, ENT: Positive for ear fullness and sore throat Cardiovascular: Negative for chest pain, palpitations, and edema, Respiratory: Positive for cough, negative for shortness of breath Abdomen/GI: Positive for anorexia, negative for abdominal pain/vomiting/diarrhea MS/Extremity: Negative for injury and deformity, Neuro: Positive for headache Exam: 09:20 Constitutional: This is a well developed, well nourished patient who is awake, alert, rn and in no acute distress. Ambulatory to room without assistance or difficulty Head/Face: Normocephalic, atraumatic. ENT: Dry mucous membranes, mild pharyngeal erythema, no exudate, no stridor Neck: Nontender cervical lymphadenopathy present. Cardiovascular: Tachycardic, irregular Respiratory: No increased work of breathing, no retractions or nasal flaring. Abdomen/GI: Soft, non-tender MS/ Extremity: Pulses equal, no cyanosis Neuro: Awake and alert, GCS 15 Vital Signs: 09:16 BP 119 / 77; Pulse 66; Resp 16; Temp 98.6(O); Pulse Ox 100% on R/A; Pain 8/10; hb 10:38 BP 112 / 57; Pulse 69; Resp 16 S; Pulse Ox 100% on R/A; aa5 09:16 Pain Scale: Adult hb MDM: 09:08 Patient medically screened. rn 11:19 Data reviewed: vital signs, nurses notes, lab test result(s), radiologic studies, plain rn films, and as a result, I will discharge patient. Independent interpretation of the following test(s) in the Emergency Department X-Ray: My interpretation is Chest x-ray images negative for pneumonia or pneumothorax per my interpretation. Counseling: I had a detailed discussion with the patient and/or guardian regarding the historical points, exam findings, and any diagnostic results supporting the discharge/admit diagnosis, lab results, radiology results, the need for outpatient follow up, to return to the emergency department if symptoms worsen or persist or if there are any questions or concerns that arise at home. Special discussion: I discussed with the patient/guardian in detail that at this point there is no indication for admission to the hospital. It is understood, however, that if the symptoms persist or worsen the patient needs to return immediately for re-evaluation. 03/09 09:18 Order name: Strep rn 03/09 09:18 Order name: Flu; Complete Time: 10:00 rn 03/09 09:18 Order name: SARS RAPID; Complete Time: 10:00 rn 03/09 09:18 Order name: CBC with Diff; Complete Time: 09:58 rn 03/09 09:18 Order name: Basic Metabolic Panel; Complete Time: :58 rn 03/09 10:01 Order name: Throat Culture EDMS 03/09 09:18 Order name: XRAY Chest (1 view); Complete Time: 11:19 rn 03/09 09:18 Order name: IV Start; Complete Time: 09:37 rn Administered Medications: :37 Drug: NS 0.9% IV 1000 ml IV at 1000 ml once; to be given as a bolus over 60 minutes aa5 Route: IV; Rate: 1000 ml; Site: right antecubital; 10:38 Follow up: IV Status: Completed infusion; IV Intake: 1000ml aa5 10:14 Drug: Potassium Chloride PO 40 mEq PO once Route: PO; bp 10:38 Follow up: Response: No adverse reaction aa5 Disposition Summary: 03/09/24 11:20 Discharge Ordered Notes: Location: Home rn Problem: new rn Symptoms: have improved rn Condition: Stable rn Diagnosis - Influenza due to identified novel influenza A virus with other respiratory rn manifestations Followup: rn - With: Private Physician - When: As needed - Reason: Recheck today's complaints, Re-evaluation by your physician Discharge Instructions: - Discharge Summary Sheet rn - Influenza, Adult rn Forms: - Medication Reconciliation Form rn - Antibiotic international exchange coordinator - Prescription Opioid Use rn - Patient Portal Instructions rn - Leadership Thank You Letter rn - Work release form Signatures: Dispatcher [employer] EDMS Sohail Navarro MD MD rn Calderon, Audri RN RN aa5 Soni Carreno RN RN Geremias Jo RN RN bp Corrections: (The following items were deleted from the chart) 09:19 09:19 Influenza Screen (A \T\ B)+BA.LAB.BRZ ordered. EDMS EDMS 09:19 09:19 SARS-COV-2 Antigen Rapid+I.LAB.BRZ ordered. EDMS EDMS 09:19 09:19 Group A Streptococcus Rapid Sc+BA.LAB.BRZ ordered. EDMS EDMS 09:19 09:19 CBC+H.LAB.BRZ ordered. EDMS EDMS 09:19 09:19 BASIC METABOLIC PANEL+C.LAB.BRZ ordered. EDMS EDMS 09:19 09:19 Chest Single View+RAD.RAD.BRZ ordered. EDMS EDMS
[2024-03-09 12:21] VITALS: TEMP 98.6; O2SAT 100
[2024-03-09 12:22] VITALS: BP 112/57
== END 2024-03-09 11:54 | disposition home or self-care (01) ==
LOC: ER 09:06
DX: J10.1 Influenza due to other identified influenza virus with other respiratory manifestations (principal); Z11.52 Encounter for screening for COVID-19
CPT/HCPCS: 87070; 85025; 80048; 36415; 87081; 87804 ×2; 71045; 87811; J7030; 96360; 99284